=== PATIENT | female | born 1975 | race Caucasian/White ===

== ENCOUNTER 2024-05-06 12:49 | Emergency (ER) | payer SELFPAY ==
[2024-05-06 12:55] VITALS: BP 130/85; PULSE 108; TEMP 36.6; O2SAT 98; BMI 31.6
--- NOTE | 2024-05-06 13:10 | XR_ITS ---
The [address] [address] Patient Name: DILLON HINDS MRN: [id number] date: 1975 Sex: F Assigned Patient Location: ER Current Patient Location: ER Accession/Order Number: [id number] Exam Date: 05/06/2024 13:35 Report Date: 05/06/2024 15:03 At the request of: SAGE DUMONT Procedure: XR abdomen 1V EXAM: XR abdomen 1V HISTORY: poss constipation COMPARISON: Abdominal series 11/03/2018. CT scan 11/04/2018. TECHNIQUE: Supine KUB. FINDINGS: Mildly prominent small bowel loops lower abdomen right lower quadrant specific. No gastric or colonic distention. Moderate to large amount stool throughout the colon. Soft tissues unremarkable. Surgical clips right upper quadrant from previous cholecystectomy. Lung bases clear. XR/XR abdomen 1V IMPRESSION: Mildly prominent small bowel loops lower midabdomen right lower quadrant nonspecific. No colonic distention. Moderate to large amount of colonic stool. Electronically authenticated by: MELY PULLIAM Date: 05/06/2024 15:03
--- NOTE | 2024-05-06 13:11 | ED_ITS ---
HPI - Abdominal Pain General Chief Complaint: Abdominal Pain Stated Complaint: CONSTIPATED Time Seen by Provider: 05/06/24 13:05 Source: patient Mode of arrival: walk-in Limitations: no limitations History of Present Illness HPI narrative: 48-year-old female presents to the emergency department for abdominal pain. She believes she is constipated. She had a bowel movement 2 days ago which was normal and she did have 1 yesterday. She did not take any laxatives because she states she did not want her abdomen to start hurting from the cramping. No trauma or fever. Related Data Home Medications ?Medication ?Instructions ?Recorded ?Confirmed atorvastatin 40 mg tablet 40 mg PO DAILY 05/06/24 05/06/24 cyclobenzaprine 10 mg tablet 10 mg PO Q8H PRN muscle spasm 05/06/24 05/06/24 levothyroxine 125 mcg tablet 125 mcg PO DAILY 05/06/24 05/06/24 losartan 50 mg tablet 50 mg PO DAILY 05/06/24 05/06/24 naproxen 500 mg tablet 500 mg PO Q12H 05/06/24 05/06/24 Allergies Allergy/AdvReac Type Severity Reaction Status Date / Time No Known Drug Allergies Allergy Verified 05/06/24 12:54 Review of Systems ROS Narrative A ten point review of systems is negative except as noted above. No vomiting PFSH PFSH Social History Little interest or pleasure in doing things: not at all Feeling down, depressed, or hopeless: not at all Exam Narrative Exam Narrative: Nurses note and vital signs reviewed and patient is not hypoxic. General: The patient appears well and in no apparent distress. Patient is resting comfortably on cart. Skin: Warm, dry, no pallor noted. There is no rash noted. Head: Normocephalic, atraumatic Eye: Normal conjunctiva, no drainage Ears, Nose, Mouth, and Throat: oral mucosa is moist. Nares patent. Cardiovascular: Regular Rate and Rhythm Respiratory: Patient is in no distress, no accessory muscle use, lungs are clear to auscultation, no wheezing, rales or rhonchi Back: non-tender GI: Normal bowel sounds, no distention or mass. Minimal diffuse tenderness. Musculoskeletal: The patient has no evidence of calf tenderness, no pitting edema, symmetrical pulses noted bilaterally Neurological: A&O, normal speech Psychiatric: Cooperative Constitutional Vital Signs, click to edit/add: Last Vital Signs Temp 97.9 F 05/06/24 12:55 Pulse 107 H 05/06/24 14:31 Resp 20 05/06/24 14:31 BP 156/84 H 05/06/24 14:31 Pulse Ox 100 05/06/24 14:31 O2 Del Method Room Air 05/06/24 14:31 Course Vital Signs Vital signs: Vital Signs Temperature 97.9 F 05/06/24 12:55 Pulse Rate 108 H 05/06/24 12:55 Respiratory Rate 18 05/06/24 12:55 Blood Pressure 130/85 05/06/24 12:55 Pulse Oximetry 98 05/06/24 12:55 Oxygen Delivery Method Room Air 05/06/24 12:55 Temperature 97.9 F 05/06/24 12:55 Pulse Rate 107 H 05/06/24 14:31 Respiratory Rate 20 05/06/24 14:31 Blood Pressure 156/84 H 05/06/24 14:31 Pulse Oximetry 100 05/06/24 14:31 Oxygen Delivery Method Room Air 05/06/24 14:31 MDM - Abdominal Pain MDM Narrative Medical decision making narrative: Constipation is identified on her x-ray per radiologist. She was given Dulcolax here and recommended MiraLAX. Treatment diagnosis and follow-up were discussed with the patient. Differential Diagnosis Differential diagnosis: Likely abdominal pain, constipation and gastroenteritis Imaging Data Abdominal x-ray: Radiologist's impression: ITS Impressions Abdomen X-Ray 05/06/24 13:10 IMPRESSION: Mildly prominent small bowel loops lower midabdomen right lower quadrant nonspecific. No colonic distention. Moderate to large amount of colonic stool. Electronically authenticated by: MELY PULLIAM Date: 05/06/2024 15:03 Discharge Plan Discharge Chief Complaint: Abdominal Pain Clinical Impression: Constipation Patient Disposition: Home, Self-Care Time of Disposition Decision: 15:22 Condition: Good Mode of Transportation: Private Vehicle Prescriptions / Home Meds: No Action atorvastatin 40 mg tablet 40 mg PO DAILY levothyroxine 125 mcg tablet 125 mcg PO DAILY losartan 50 mg tablet 50 mg PO DAILY naproxen 500 mg tablet 500 mg PO Q12H cyclobenzaprine 10 mg tablet 10 mg PO Q8H PRN (Reason: muscle spasm) Print Language: Maltese Instructions: Constipation (ED) Additional Instructions: [id number] MiraLAX for constipation. Follow the instructions on the container. Referrals: Physician,Non-Staff, MD [Primary Care Provider] - 1 week
[2024-05-06 14:31] VITALS: BP 156/84; PULSE 107; O2SAT 100
[2024-05-06] MEDS: BISACODYL 5 MG TABLET 10 MG PO (15:27)
== END 2024-05-06 15:39 | disposition home or self-care (01) ==
PROVIDERS: Emergency Provider Emergency Medicine
DX: K59.00 Constipation, unspecified (principal); Z90.49 Acquired absence of other specified parts of digestive tract
CPT/HCPCS: 74018; 99283